=== PATIENT | male | born 1980 | race Caucasian/White ===

== ENCOUNTER 2018-03-04 11:08 | Emergency (ER) | payer SELFPAY ==
[~2018-03-04] VITALS: Ht 167.6 cm; Wt 81.5 kg
[2018-03-04 11:45] LABS: BASOPHILS # (AUTO) 0.02 x10^3/uL (0-0.1); BASOPHILS % (AUTO) 0 % (0-1); EOSINOPHILS # (AUTO) 0.03 x10^3/uL (0-0.4); EOSINOPHILS % (AUTO) 0 % (1-7); LYMPHOCYTES # (AUTO) 1.88 x10^3/uL (1-3.4); LYMPHOCYTES % (AUTO) 20 % (22-44); MD NO; MEAN CORPUSCULAR HEMOGLOBIN 31.1 pg (27.5-34.5); MEAN CORPUSCULAR HGB CONC 34.3 g/dL (33.2-36.2); MEAN CORPUSCULAR VOLUME 90.7 fL (81-97); MEAN PLATELET VOLUME 8.8 fL (7.4-10.4); MONOCYTES # (AUTO) 0.88 x10^3/uL (0.2-0.8); MONOCYTES % (AUTO) 9 % (2-9); NEUTROPHILS % (AUTO) 70 % (42-75); PLATELET COUNT 205 x10^3/uL (130-400); RED BLOOD COUNT 4.81 x10^6/uL (4.38-5.82); RED CELL DISTRIBUTION WIDTH 13.4 % (9.4-14.8)
[2018-03-04 11:57] LABS: ALBUMIN 3.9 g/dL (3.4-5.0); ANION GAP 5 mmol/L (5-15); CALCIUM 8.1 mg/dL (8.5-10.1); CHLORIDE 110 mmol/L (98-107); SALICYLATE LEVEL 2.1 mg/dL (2.8-20.0)
[2018-03-04 12:00] LABS: ALANINE AMINOTRANSFERASE 46 U/L (12-78); ALKALINE PHOSPHATASE 48 U/L (45-117); CREATININE 1.12 mg/dL (0.7-1.3); TOTAL PROTEIN 7.2 g/dL (6.4-8.2)
[2018-03-04] MEDS ORDERED: ZIPRASIDONE 20 MG INJ IM ONE (12:00)
[2018-03-04 12:03] LABS: ACETAMINOPHEN < 2 mcg/mL (10-30)
[2018-03-04] MEDS ORDERED: ZIPRASIDONE 20MG CAPSULE ONE (14:20)
[2018-03-04 15:18] LABS: AMPHETAMINE SCREEN, URINE Positive (Negative); BARBITURATE SCREEN, URINE Negative (Negative); BENZODIAZEPINE SCREEN, URINE Negative (Negative); CANNABINOID SCREEN, URINE Positive (Negative); COCAINE SCREEN, URINE Negative (Negative); METHADONE SCREEN, URINE Negative (Negative); OPIATE SCREEN, URINE Negative (Negative)
[2018-03-04 16:28] VITALS: BP 114/62
[2018-03-04] MEDS ORDERED: ZIPRASIDONE 20MG CAPSULE PO SCH (21:00)
== END 2018-03-04 16:36 | disposition home or self-care (01) ==
LOC: EDBD 11:08 → ED 11:35
DX: R41.82 Altered mental status, unspecified (principal); F15.10 Other stimulant abuse, uncomplicated; F17.200 Nicotine dependence, unspecified, uncomplicated
CPT/HCPCS: 36415; 80053; 80307; 80329; 85025; 99284; G0480

== ENCOUNTER 2018-05-01 08:29 | Emergency (ER) | payer OTHER ==
[~2018-05-01] VITALS: Ht 167.6 cm; Wt 66.1 kg
[2018-05-01 08:31] VITALS: BP 126/72
[2018-05-01] MEDS ORDERED: BACITRACIN ZINC OINT 500U/GM, 0.9 GM ONE (09:50)
== END 2018-05-01 10:16 | disposition home or self-care (01) ==
LOC: ED 10:15
DX: S50.11XA Contusion of right forearm, initial encounter (principal); S80.02XA Contusion of left knee, initial encounter; Z59.0 Homelessness; V19.9XXA Pedal cyclist (driver) (passenger) injured in unspecified traffic accident, initial encounter; Y93.55 Activity, bike riding; Y92.488 Other paved roadways as the place of occurrence of the external cause; Y99.8 Other external cause status
CPT/HCPCS: 99284

== ENCOUNTER 2019-04-24 14:51 | Emergency (ER) | payer OTHER ==
[~2019-04-24] VITALS: Ht 167.6 cm; Wt 70.0 kg
[2019-04-24 14:54] VITALS: BP 111/66
--- NOTE | 2019-04-24 15:18 | NUR ---
"AT PARK PLAYING BASKETBALL AND AFTER JUMPING LANDED SIDEWAYS." NOW RIGHT ANKLE PAIN. ABLE TO AMBULATE FROM PARK. SIGNIFICANT SWELLING NOTED TO HIGH RIGHT ANKLE +2 DP PULSE REPORTS RIGHT 1ST TOES NUMB-PROVIDER MADE AWARE-
--- NOTE | 2019-04-24 15:20 | NUR ---
XRAY AT BEDSIDE
--- NOTE | 2019-04-24 16:00 | NUR ---
WITH REASSESSMENT SWELLING INCHANGED WITH ELEVATION/ICE +2DP REMAINS-NO [facility] EXAM CHANGES TESTING RESULTS REVIEWED-PATIENT PLACED FOR RECHECK TO DETERMINE DISPO
[2019-04-24] MEDS ORDERED: NAPROXEN 500 MG TABLET ONE (17:04)
[2019-04-24] MEDS ORDERED: NAPROXEN 500 MG TABLET PO ONE (17:30)
== END 2019-04-24 17:01 | disposition home or self-care (01) ==
LOC: ED 16:50
DX: S93.401A Sprain of unspecified ligament of right ankle, initial encounter (principal); L03.115 Cellulitis of right lower limb; J45.909 Unspecified asthma, uncomplicated; F17.200 Nicotine dependence, unspecified, uncomplicated; W18.30XA Fall on same level, unspecified, initial encounter; Y93.79 Activity, other specified sports and athletics; Y92.328 Other athletic field as the place of occurrence of the external cause; Y99.8 Other external cause status
CPT/HCPCS: 99283